=== PATIENT | female | born 1940 | race Caucasian/White ===

== ENCOUNTER 2016-08-27 08:00 | Inpatient (IN) | payer OTHER ==
[2016-10-29 08:42] VITALS: BMI 27.9
[2016-10-30] MEDS ORDERED: DESFLURANE GAS 240 ML BOTTLE IH ONE (07:23)
[2016-10-30] MEDS ORDERED: LIDOCAINE HCL 2% (20ML MULTI-DOSE VIAL) NR ONE (07:23)
[2016-10-30] MEDS ORDERED: ceFAZolin SODIUM 1 GM VIAL ONE (07:28)
[2016-10-30] MEDS ORDERED: KETOROLAC TROMETHAMINE 30 MG/1 ML VIAL ONE (07:28)
[2016-10-30] MEDS ORDERED: ONDANSETRON 4 MG/2 ML VIAL ONE (07:28)
[2016-10-30] MEDS ORDERED: ROCURONIUM BROMIDE 50 MG/5 ML VIAL ONE (07:28)
[2016-10-30] MEDS ORDERED: PROPOFOL 20 ML ONE ×4 (07:28→07:53)
[2016-10-30] MEDS ORDERED: SODIUM CHLORIDE 0.9% P/F 10 ML VIAL IJ ONE (07:28)
[2016-10-30] MEDS ORDERED: MIDAZOLAM HCL 2 MG/2 ML SINGLE DOSE VIAL ONE (07:28)
[2016-10-30] MEDS ORDERED: DEXAMETHASONE SOD PHOSPHATE 4 MG/1 ML VIAL ONE (07:28)
[2016-10-30] MEDS ORDERED: ePHEDrine SULFATE 50 MG/1 ML AMPULE ONE (07:28)
[2016-10-30] MEDS ORDERED: SUCCINYLCHOLINE CHLORIDE 200 MG/10 ML VIAL ONE (07:28)
[2016-10-30] MEDS ORDERED: PHENYLEPHRINE HCL 10 MG/1 ML SINGLE DOSE VIAL ONE (07:28)
[2016-10-30] MEDS ORDERED: ceFAZolin SODIUM 1 GM VIAL IVPB ONE (08:49)
[2016-10-30] MEDS ORDERED: METHYLENE BLUE 1% 10 MG/1 ML VIAL IVPUSH ONE (09:00)
[2016-10-30] MEDS ORDERED: METHYLENE BLUE 1% 10 MG/1 ML VIAL NR ONE (09:15)
[2016-10-30] MEDS ORDERED: RANITIDINE HCL 150 MG TABLET (FP) PO PRN (10:14)
[2016-10-30] MEDS ORDERED: ONDANSETRON 4 MG/2 ML VIAL IVPUSH PRN (10:32)
[2016-10-30] MEDS ORDERED: HYDROmorphone HCL CARPU-JECT 1 MG/1 ML DISP.SYRIN IVPUSH PRN (10:32)
[2016-10-30] MEDS ORDERED: HYDROmorphone HCL CARPU-JECT 2 MG/1 ML DISP.SYRIN IVPUSH ONE ×2 (10:35→10:50)
[2016-10-30] MEDS ORDERED: HYDROmorphone HCL CARPU-JECT 2 MG/1 ML DISP.SYRIN ONE (10:35)
[2016-10-30] MEDS ORDERED: LACTATED RINGERS SOLUTION 1,000 ML IV SCH (12:00)
--- NOTE | 2016-10-30 14:43 | OP ---
DATE OF OPERATION: 10/30/2016 PREOPERATIVE DIAGNOSIS: Complete utero-vaginal prolapse. POSTOPERATIVE DIAGNOSIS: Complete utero-vaginal prolapse. PROCEDURE PERFORMED: Vaginal hysterectomy with colpectomy and enterocele repair, sling, perineoplasty and cystoscopy. PRIMARY SURGEON: Grayson Barclay MD DESCRIPTION OF PROCEDURE: After adequate anesthesia, the patient was prepped and draped in dorsal lithotomy position. A dilute solution of Pitressin was injected throughout the entire vaginal epithelium. A circumferential incision was made around the cervix, and the anterior and posterior cul-de-sacs were entered without any difficulty. The uterosacral/cardinal ligament complex, followed by the uterine artery and uteroovarian ligament were clamped, cut, and suture ligated. The uterus was removed. The ovaries were palpated and visualized to be normal, but too high up to take out safely from below and therefore left behind. Anterior cul-de-sac was closed off using 0 Vicryl suture circumferential stitch. A vertical incision was made over the anterior vaginal wall, the paravesical fascia dissected away, plicated using 0 Vicryl suture in a circumferential stitch x2. Excess vaginal epithelium was excised along with the back wall, and then closed using 2-0 Vicryl suture in continuous fashion. The mid-urethra area was dissected up to the space of Retzius. Transvaginal tape and a sling were inserted at the appropriate anatomical location. Then, 6 mL of methylene blue were given intravenously. Cystoscopy was performed to note no foreign bodies in the bladder and blue dye emanating from both ureteral orifices vigorously. Minimal tension was applied to the sling arms. Sling arms were then covered with skin. Skin closed with Dermabond. The anterior vaginal wall was closed using 2-0 Vicryl suture in a continuous fashion. A triangular incision was made on the perineum and the vaginal epithelium in this area was excised. The perirectal fascia was dissected away along with the superficial perineal muscle and the superficial perineal muscle 0 Vicryl suture in a continuous fashion, thus rebuilding the perineal body. The back wall of the vagina was then closed using 2-0 Vicryl suture in a continuous fashion. Rectal examination was negative for any foreign bodies. The patient tolerated the procedure well and was transferred to the recovery room in stable condition. A Downing catheter was inserted. Fernando [id number]
[2016-10-30] MEDS: HYDROmorphone HCL CARPU-JECT 1 MG/1 ML DISP.SYRIN IVPB PRN ×2 (15:03→20:37)
[2016-10-30] MEDS: GEMFIBROZIL 600 MG TABLET (FP) PO SCH (21:23)
[2016-10-30] MEDS ORDERED: ATORVASTATIN CA 20 MG TABLET (FP) PO SCH (22:00)
[2016-10-31 02:47] VITALS: TEMP 97.9
[2016-10-31] MEDS: HYDROmorphone HCL CARPU-JECT 1 MG/1 ML DISP.SYRIN IVPB PRN (04:04)
[2016-10-31] MEDS ORDERED: PNEUMOC 13-VAL CONJ-DIP CRM/PF 0.5 ML DISP.SYRIN IM ONE (06:51)
[2016-10-31 08:53] VITALS: BP 125/67; PULSE 70
[2016-10-31] MEDS: GEMFIBROZIL 600 MG TABLET (FP) PO SCH (09:10)
--- NOTE | 2016-10-31 09:26 | PN ---
Progress Note (short form) - Note Progress Note: POD #1 - s/p vaginal hysterectomy, cystocele repair, colpectomy under spinal anesthesia. Pt. doing well, sitting up comfortably in chair finishing breakfast. No complaints. No apparent anesthetic complications noted. Continue current care.
[2016-10-31] MEDS ORDERED: METOPROLOL SUCCINATE 25 MG TAB.SR.24H (FP) PO SCH (10:00)
[2016-10-31] MEDS ORDERED: ASPIRIN 81 MG CHEWABLE TABLETS PO SCH (10:00)
[2016-10-31] MEDS ORDERED: LOSARTAN POTASSIUM 50 MG TABLET (FP) PO SCH (10:00)
[2016-10-31] MEDS ORDERED: DOXAZOSIN MESYLATE 4 MG TABLET PO SCH (10:00)
[2016-10-31] MEDS ORDERED: FUROSEMIDE 20 MG TABLET (FP) PO SCH (10:00)
--- NOTE | 2016-10-31 13:41 | PATH ---
Surgical Pathology Report Patient Name: KELLY OLSEN [facility]. Rec. #: [id number] /Age/Gender: 1940 (Age: 76) / F Account: [id number] Location: [facility] OBS/GIS DATABASE ADMINISTRATOR Taken: 10/30/2016 Received: 10/30/2016 Reported: 10/31/2016 Physicians: Grayson Barclay M.D. Specimen(s) Received UTERUS AND CERVIX, VAGINAL MUCOSA Clinical History Stress incontinence, cystocele Final Diagnosis UTERUS, CERVIX, VAGINAL MUCOSA, TRANSVAGINAL HYSTERECTOMY, ENTEROCELE REPAIR: CERVIX: CHRONIC CERVICITIS, PARAKERATOSIS. ENDOMETRIUM: ATROPHIC ENDOMETRIUM. 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 UTERINE SEROSA: WITHOUT SIGNIFICANT PATHOLOGIC CHANGES. VAGINAL MUCOSA: BENIGN SQUAMOUS MUCOSA WITH FOCAL MILD CHRONIC INFLAMMATION. Electronically Signed Ramy Barbour M.D. Gross Description Received in formalin, labeled "uterus, cervix, vaginal mucosa" is a 51 g uterus with an attached cervix and no attached adnexa. The specimen measures 8.5 cm from superior to inferior, 4 cm from left to right and 2.4 cm from anterior to posterior. The serosa is pink-amin and smooth. The attached cervix measures 3.7 cm in length and averages 2.2 cm in diameter. The ectocervix is pink-amin, smooth and glistening. The endocervix is unremarkable. The endometrial cavity measures 3.5 cm in length and 1.8 cm from cornu to cornu. The endometrium is amin-pink and averages 0.1 cm in thickness. The myometrium is amin-pink and averages 1.1 cm in thickness. No intramural nodules are identified. Separately received within the same container is a 3.5 x 3.0 x 0.3 cm amin, irregular, unremarkable portion of vaginal mucosa. Senior Java Software Developer sections are submitted in 7 cassettes as follows: 1-anterior cervix; 2-posterior cervix; 4-6-lpirqzdg endomyometrium; 9-2-sjlxcfutw endomyometrium; 7-separately received vaginal mucosa. 10/30/201610/30/2016
== END 2016-10-31 11:50 | disposition home or self-care (01) | DRG 743 ==
LOC: JSAMEDAYSX 10-30 06:16 → J3W 10-30 12:22
PROVIDERS: ADMIT Obstetrics & Gynecology Female Pelvic Medicine and Reconstructive Surgery; ATTEND Obstetrics & Gynecology Female Pelvic Medicine and Reconstructive Surgery
PROC: 0UQF8ZZ Repair Cul-de-sac, Via Natural or Artificial Opening Endoscopic (ICD-10-PCS; 2016-10-30)
PROC: 0WQN4ZZ Repair Female Perineum, Percutaneous Endoscopic Approach (ICD-10-PCS; 2016-10-30)
PROC: 0UT98ZZ Resection of Uterus, Via Natural or Artificial Opening Endoscopic (ICD-10-PCS; principal; 2016-10-30 08:00)
PROC: 0UBG8ZZ Excision of Vagina, Via Natural or Artificial Opening Endoscopic (ICD-10-PCS; 2016-10-30 08:00)
DX: N81.3 Complete uterovaginal prolapse (principal); K21.9 Gastro-esophageal reflux disease without esophagitis
CPT/HCPCS: 88307-TC; 94760

== ENCOUNTER 2020-07-18 04:36 | Day surgery (SDC) | payer OTHER ==
[2020-07-13 12:41] VITALS: BMI 30.8
--- OUTSIDE RECORDS SUMMARY | 2020-07-18 04:39 | XMS ---
:1940 [facility] Support Name Relationship Address Phone RE, RETIRED Unavailable Unavailable Unavailable RE Unavailable Unavailable Unavailable CHRISTOS OLSEN [address] [place] [address] MICH BETANCOURT DAUGHTER [address] [place] [address] Re-disclosure Warning The records that you are about to access may contain information from federally- assisted alcohol or drug abuse programs. If such information is present, then the following federally mandated warning applies: This information has been disclosed to you from records protected by federal confidentiality rules (42 CFR part 2). The federal rules prohibit you from making any further disclosure of this information unless further disclosure is expressly permitted by the written consent of the person to whom it pertains or as otherwise permitted by 42 CFR part 2. A general authorization for the release of medical or other information is NOT sufficient for this purpose. The Federal rules restrict any use of the information to criminally investigate or prosecute any alcohol or drug abuse patient.The records that you are about to access may contain highly sensitive health information, the redisclosure of which is protected by Article 27-F of the [facility] Public Health law. If you continue you may haveaccess to information: Regarding HIV / AIDS; Provided by facilities licensed or operated by the [facility] Office of Mental Health; or Provided by the [facility] Office for People With Developmental Disabilities. If such information is present, then the following [facility] mandated warning applies: This information has been disclosed to you from confidential records which are protected by state law. State law prohibits you from making any further disclosure of this information without the specific written consent of the person to whom it pertains, or as otherwise permitted by law. Any unauthorized further disclosure in violation of state law may result in a fine or detention sentence or both. A general authorization for the release of medical or other information is NOT sufficient authorization for further disclosure. Insurance Providers Payer name Policy type Policy ID Covered Covered alliance party's Policy P danielle / Coverage alliance party ID relationship to Espinoza Inf ormation type espinoza [employer] [id number] SP [id number] MEDICARE Results ID Date Data Source [id number] 07/14/2020 10:30:00 AM EDT [facility] Name Value Range Interpretation Description Data Sup porting Code Source(s) Document(s ) SARS [facility] coronavirus 2 RNA This lab was ordered by [facility] and reported by [facility]. Procedure
[2020-07-18 10:28] VITALS: TEMP 97.8
[2020-07-18 11:19] VITALS: BP 130/57; PULSE 69
--- NOTE | 2020-07-19 16:09 | PATH ---
Surgical Pathology Report Patient Name: KELLY OLSEN [facility]. Rec. #: [id number] /Age/Gender: 1940 (Age: 80) / F Account: [id number] Location: U-ENDOSCOPY Taken: 07/18/2020 Received: 07/18/2020 Reported: 07/19/2020 Physicians: Vivian Morillo M.D. Specimen(s) Received A: BULB AND SECOND PORTION OF DUODENUM B: GASTRIC ANTRUM C: GE JUNCTION, MID ESOPHAGUS D: PROXIMAL TRANSVERSE COLON POLYP E: CECAL POLYP F: RIGHT COLON POLYP G: SIGMOID POLYP Clinical History Refractory GERD, adenoma surveillance Postoperative diagnosis: Same as preop, Gastritis, polyps and diverticulosis Final Diagnosis A. BULB AND SECOND PORTION OF DUODENUM, BIOPSY: MODERATE CHRONIC DUODENITIS. B. GASTRIC ANTRUM, BIOPSY: MILD CHRONIC GASTRITIS. IMMUNOSTAIN IS NEGATIVE FOR H. PYLORI ORGANISMS. C. GE JUNCTION, MID-ESOPHAGUS, BIOPSY: MILDLY HYPERPLASTIC ESOPHAGEAL (SQUAMOUS) MUCOSA; THIS FEATURE MAY BE SEEN IN ASSOCIATION WITH GASTROESOPHAGEAL REFLUX DISEASE. NO COLUMNAR EPITHELIUM/INTESTINAL METAPLASIA IS IDENTIFIED. D. PROXIMAL TRANSVERSE COLON, POLYP, POLYPECTOMY: TUBULAR ADENOMA. E. CECAL POLYP, BIOPSY: TUBULAR ADENOMA. F. RIGHT COLON, POLYP, POLYPECTOMY: COLONIC MUCOSA SHOWING MILD SURFACE HYPERPLASTIC CHANGE. G. SIGMOID, POLYP, POLYPECTOMY: TUBULAR ADENOMA. Electronically Signed Luci Moraes M.D. Gross Description A. Received in formalin, labeled "bulb and second portion of duodenum" are 3 amin, irregular portions of soft tissue ranging from 0.3-0.4 cm. in greatest dimension. The specimens are submitted in toto in one cassette. B. Received in formalin, labeled "gastric antrum" are 2 amin, irregular portions of soft tissue measuring 0.4 and 0.6 cm. in greatest dimension. The specimens are submitted in toto in one cassette. C. Received in formalin, labeled "GE junction, mid esophagus" are 2 amin, irregular portions of soft tissue averaging 0.3 cm. in greatest dimension. The specimens are submitted in toto in one cassette. D. Received in formalin, labeled "proximal transverse colon" are 3 amin, irregular portions of soft tissue ranging from 0.2-0.3 cm. in greatest dimension. The specimens are submitted in toto in one cassette. E. Received in formalin, labeled "cecal polyp biopsy" are 2 amin, irregular portions of soft tissue measuring 0.2 and 0.3 cm. in greatest dimension. The specimens are submitted in toto in one cassette. F. Received in formalin, labeled "right colon polyp" are 2 amin, irregular portions of soft tissue each measuring 0.2 cm. in greatest dimension. The specimens are submitted in toto in one cassette. G. Received in formalin, labeled "sigmoid polyp" are 3 amin, irregular portions of soft tissue ranging from 0.2-0.3 cm. in greatest dimension. The specimens are submitted in toto in one cassette. 07/18/2020 saudi07/18/2020
== END 2020-07-18 11:50 | disposition home or self-care (01) ==
LOC: JASU-ENDO 04:36
PROVIDERS: ATTEND Internal Medicine Gastroenterology
PROC: 0DBL8ZX Excision of Transverse Colon, Via Natural or Artificial Opening Endoscopic, Diagnostic (ICD-10-PCS; 2020-07-18)
PROC: 0DBN8ZX Excision of Sigmoid Colon, Via Natural or Artificial Opening Endoscopic, Diagnostic (ICD-10-PCS; 2020-07-18)
PROC: 0DBK8ZX Excision of Ascending Colon, Via Natural or Artificial Opening Endoscopic, Diagnostic (ICD-10-PCS; 2020-07-18)
PROC: 0DB98ZX Excision of Duodenum, Via Natural or Artificial Opening Endoscopic, Diagnostic (ICD-10-PCS; 2020-07-18)
PROC: 0DB68ZX Excision of Stomach, Via Natural or Artificial Opening Endoscopic, Diagnostic (ICD-10-PCS; 2020-07-18)
PROC: 0DB28ZX Excision of Middle Esophagus, Via Natural or Artificial Opening Endoscopic, Diagnostic (ICD-10-PCS; 2020-07-18)
PROC: 0DB38ZX Excision of Lower Esophagus, Via Natural or Artificial Opening Endoscopic, Diagnostic (ICD-10-PCS; 2020-07-18)
PROC: 0DB48ZX Excision of Esophagogastric Junction, Via Natural or Artificial Opening Endoscopic, Diagnostic (ICD-10-PCS; 2020-07-18)
PROC: 0DBH8ZX Excision of Cecum, Via Natural or Artificial Opening Endoscopic, Diagnostic (ICD-10-PCS; principal; 2020-07-18 10:00)
DX: Z12.11 Encounter for screening for malignant neoplasm of colon (principal); Z86.010 Personal history of colon polyps; D12.2 Benign neoplasm of ascending colon; D12.0 Benign neoplasm of cecum; D12.5 Benign neoplasm of sigmoid colon; D12.3 Benign neoplasm of transverse colon; K57.30 Diverticulosis of large intestine without perforation or abscess without bleeding; K21.9 Gastro-esophageal reflux disease without esophagitis; K44.9 Diaphragmatic hernia without obstruction or gangrene; K29.50 Unspecified chronic gastritis without bleeding; K29.80 Duodenitis without bleeding
CPT/HCPCS: 88305-TC; 88342-TC

== ENCOUNTER 2021-04-23 05:24 | Emergency (ER) | payer OTHER ==
[2021-04-23 06:05] VITALS: BP 143/64; PULSE 58; TEMP 98.7; BMI 31.3
[2021-04-23] MEDS ORDERED: ACETAMINOPHEN 500 MG TABLET (FP) PO ONE (07:53)
[2021-04-23] MEDS ORDERED: FAMOTIDINE 20 MG/50 ML IVPB 20 MG/50 ML MG IVPB ONE ×2 (07:53→08:18)
[2021-04-23] MEDS ORDERED: MAG HYDROX/AL HYDROX/SIMETH 30 ML UNIT-DOSE CUP PO ONE (07:53)
[2021-04-23] MEDS ORDERED: ACETAMINOPHEN 325 MG TABLET (FP) ONE (08:17)
[2021-04-23] MEDS ORDERED: MAG HYDROX/AL HYDROX/SIMETH 30 ML UNIT-DOSE CUP ONE (08:18)
[2021-04-23 08:20] LABS: BASO % 0.3 % (0-2.0); EOS % 0.7 % (0-4.5); HEMATOCRIT 41.3 % (32.4-45.2); HEMOGLOBIN 13.8 GM/dL (10.7-15.3); LYMPH % 12.7 % (8-40); MCHC 33.3 g/dl (32.0-36.0); MEAN CELL VOLUME 87.1 fl (80-96); MEAN PLT VOLUME 9.6 fl (7.5-11.1); MONO % 3.8 % (3.8-10.2); NEUT % 82.5 % (42.8-82.8); PLATELET COUNT 161 10^3/uL (134-434); RBC 4.74 M/mm3 (3.60-5.2); RDW 13.4 % (11.6-15.6); WHITE BLOOD COUNT 11.6 K/mm3 (4.0-10.0)
[2021-04-23 08:28] LABS: CHLORIDE 107 mmol/L (98-107); SODIUM 137 mmol/L (136-145)
[2021-04-23 08:31] LABS: ALBUMIN 3.5 g/dl (3.4-5.0); BLOOD UREA NITROGEN 23.4 mg/dL (7-18); CALCIUM 8.5 mg/dL (8.5-10.1); CO2 24 mmol/L (21-32); GLUCOSE,RANDOM 111 mg/dL (74-106); LIPASE 167 U/L (73-393); MAGNESIUM 2.4 mg/dL (1.8-2.4)
[2021-04-23 08:34] LABS: CREATININE 1.1 mg/dL (0.55-1.3); SGOT/AST 72 U/L (15-37); SGPT/ALT 29 U/L (13-61)
[2021-04-23 08:35] LABS: BILIRUBIN,TOTAL 0.7 mg/dL (0.2-1); TOT PROT 7.9 g/dl (6.4-8.2)
[2021-04-23 08:37] LABS: ALK PHOS 131 U/L (45-117)
[2021-04-23] MEDS ORDERED: SODIUM CHLORIDE 0.9% 500 ML INFUS.BAG IV ONE ×2 (09:08→09:54)
[2021-04-23 09:12] LABS: ANION GAP 6 MMOL/L (8-16)
[2021-04-23 10:17] LABS: EPI CELLS 12 /uL (0-25.1); HYALINE CASTS 2 /uL (0-3.1); PH,URINE 7.5 (5.0-8.0); URINE APPEARANCE CLEAR; URINE BACTERIA 11 /uL (0-1359); URINE BILIRUBIN NEGATIVE (NEGATIVE); URINE COLOR YELLOW; URINE GLUCOSE (UA) NEGATIVE (NEGATIVE); URINE KETONE NEGATIVE (NEGATIVE); URINE LEUK ESTERASE TRACE (NEGATIVE); URINE NITRITE NEGATIVE (NEGATIVE); URINE PROTEIN 3+ (NEGATIVE); URINE RBC 11 /uL (0-23.9); URINE WBC 15 /uL (0-25.8)
[2021-04-23 10:26] LABS: CALCIUM 8.6 mg/dL (8.5-10.1)
[2021-04-23 10:27] LABS: BLOOD UREA NITROGEN 23.7 mg/dL (7-18)
[2021-04-23 10:30] LABS: CREATININE 0.9 mg/dL (0.55-1.3)
== END 2021-04-23 11:20 | disposition home or self-care (01) ==
LOC: JER 05:24
PROC: 3E033GC Introduction of Other Therapeutic Substance into Peripheral Vein, Percutaneous Approach (ICD-10-PCS; principal; 2021-04-23)
DX: R42 Dizziness and giddiness (principal); R80.9 Proteinuria, unspecified
CPT/HCPCS: 36415; 71045-TC-FY; 80048; 80053; 81003; 82550; 82553; 83690; 83735; 84484; 85025; 93005; 93010; 99285-25

== ENCOUNTER 2025-08-04 06:22 | Day surgery (SDC) | payer OTHER ==
[2025-08-03 14:52] VITALS: BMI 34.2
[2025-08-04 10:31] VITALS: TEMP 97.6
[2025-08-04 10:41] VITALS: RESP 18
[2025-08-04 11:08] VITALS: BP 130/55; PULSE 70
== END 2025-08-04 11:08 | disposition home or self-care (01) ==
LOC: JASU-ENDO 06:22
PROVIDERS: ATTEND Internal Medicine Gastroenterology
PROC: 0DBL8ZX Excision of Transverse Colon, Via Natural or Artificial Opening Endoscopic, Diagnostic (ICD-10-PCS; 2025-08-04)
PROC: 0DBF8ZX Excision of Right Large Intestine, Via Natural or Artificial Opening Endoscopic, Diagnostic (ICD-10-PCS; 2025-08-04)
PROC: 0DBH8ZX Excision of Cecum, Via Natural or Artificial Opening Endoscopic, Diagnostic (ICD-10-PCS; principal; 2025-08-04 10:00)
DX: Z12.11 Encounter for screening for malignant neoplasm of colon (principal); D12.3 Benign neoplasm of transverse colon; D12.2 Benign neoplasm of ascending colon; D12.0 Benign neoplasm of cecum; K64.8 Other hemorrhoids; K57.30 Diverticulosis of large intestine without perforation or abscess without bleeding; Z86.0101 Personal history of adenomatous and serrated colon polyps